=== PATIENT | male | born 1940 | race Native Hawaiian/Other Pacific Islander ===

== ENCOUNTER 2016-07-15 06:28 | Outpatient (CLI) | payer OTHER, MEDICARE ==
[~2016-07-15 06:28] MED LIST: AMILORIDE5 MG OR; ASPIRIN325 M1 OR; CADUET5 MG/10 MG OR; DEMADEX20 MG PO; DIOVAN HC1 PO; FINA5TAB2 PO; FISH OIL1000 M2 PO; K-TAB10 MEQ PO; ROSU10TA PO; TAMS0.4C PO; VITAMIN B-12500 MCG PO; VITAMIN D H1000 UNIT OR
[2016-07-15 07:19] LABS: POTASSIUM 4.1 mmol/L (3.6-5.2); SODIUM 137 mmol/L (136-145)
[2016-07-15 08:07] LABS: PLATELET COUNT 138 K/uL (142-355)
== END 2016-07-15 19:58 | disposition home or self-care (01) ==
LOC: LABW 06:28
PROVIDERS: Internal Medicine Cardiovascular Disease
DX: E78.4 Other hyperlipidemia (principal); R06.09 Other forms of dyspnea; Z79.899 Other long term (current) drug therapy; Z51.81 Encounter for therapeutic drug level monitoring; Z11.59 Encounter for screening for other viral diseases
CPT/HCPCS: 36415; 80048; 80061; 80076; 83880; 85027; 86803

== ENCOUNTER 2017-01-10 14:12 | Outpatient (CLI) | payer OTHER, MEDICARE | END 2017-01-10 15:15 | disposition home or self-care (01) | LOC: RAD 14:12 | DX: J32.8 Other chronic sinusitis (principal) ==

== ENCOUNTER 2017-01-20 13:07 | Outpatient (CLI) | payer OTHER, MEDICARE | END 2017-01-20 14:30 | disposition home or self-care (01) | LOC: LABW 13:07 | DX: R05 Cough (principal) | CPT/HCPCS: 36415; 86615 ==

== ENCOUNTER 2017-03-01 13:30 | Outpatient (CLI) | payer OTHER, MEDICARE | END 2017-03-01 19:01 | disposition home or self-care (01) | LOC: RESP 13:30 | DX: R06.02 Shortness of breath (principal) | CPT/HCPCS: 94640; 94664 ==

== ENCOUNTER 2017-06-29 14:39 | Outpatient (CLI) | payer OTHER, MEDICARE ==
[2017-06-29 16:06] LABS: PLATELET COUNT 174 K/uL (142-355)
== END 2017-06-29 15:40 | disposition home or self-care (01) ==
LOC: LABW 14:39
PROVIDERS: Nurse Practitioner Family
DX: J45.909 Unspecified asthma, uncomplicated (principal)
CPT/HCPCS: 36415; 82785; 85027; 86003

== ENCOUNTER 2017-09-01 06:08 | Outpatient (CLI) | payer OTHER, MEDICARE | END 2017-09-01 22:43 | disposition home or self-care (01) | LOC: LABW 06:08 | PROVIDERS: Specialist | DX: I25.10 Atherosclerotic heart disease of native coronary artery without angina pectoris (principal) | CPT/HCPCS: 36415; 80048; 83735 ==

== ENCOUNTER 2017-11-03 05:24 | Outpatient (CLI) | payer OTHER, MEDICARE ==
[2017-11-03 05:58] LABS: PLATELET COUNT 184 K/uL (142-355)
[2017-11-03 06:18] LABS: POTASSIUM 3.9 mmol/L (3.6-5.2)
== END 2017-11-03 22:00 | disposition home or self-care (01) ==
LOC: LABW 05:24
PROVIDERS: Internal Medicine
DX: I10 Essential (primary) hypertension (principal)
CPT/HCPCS: 36415; 80053; 80061; 81000; 82550; 83735; 84436; 84443; 84550; 85027

== ENCOUNTER 2018-02-05 06:28 | Outpatient (CLI) | payer OTHER, MEDICARE ==
[2018-02-05 07:54] LABS: PLATELET COUNT 163 K/uL (142-355)
== END 2018-02-05 19:13 | disposition home or self-care (01) ==
LOC: LABW 06:28 → RAD 06:28 → LABW 19:13
PROVIDERS: Internal Medicine
DX: Z00.00 Encounter for general adult medical examination without abnormal findings (principal); J45.909 Unspecified asthma, uncomplicated; I10 Essential (primary) hypertension; Z79.899 Other long term (current) drug therapy
CPT/HCPCS: 36415; 80053; 80061; 81000; 84153; 84439; 84443; 85027

== ENCOUNTER 2018-02-06 08:55 | Outpatient (CLI) | payer OTHER, MEDICARE | END 2018-02-06 22:39 | disposition home or self-care (01) | LOC: US 08:55 | DX: Z13.6 Encounter for screening for cardiovascular disorders (principal) ==

== ENCOUNTER 2018-03-20 06:33 | Outpatient (CLI) | payer OTHER, MEDICARE ==
[2018-03-20 07:50] LABS: PLATELET COUNT 168 K/uL (142-355)
== END 2018-03-20 20:59 | disposition home or self-care (01) ==
LOC: LABW 06:33
PROVIDERS: Internal Medicine
DX: M35.3 Polymyalgia rheumatica (principal)
CPT/HCPCS: 36415; 80053; 81000; 82550; 84443; 85027; 85651; 86140

== ENCOUNTER 2018-04-04 10:55 | Outpatient (CLI) | payer OTHER, MEDICARE | END 2018-04-04 23:01 | disposition home or self-care (01) | LOC: RAD 10:55 | DX: M25.552 Pain in left hip (principal); M25.551 Pain in right hip; M25.511 Pain in right shoulder; G89.29 Other chronic pain ==

== ENCOUNTER 2018-05-09 09:07 | Outpatient (CLI) | payer OTHER, MEDICARE ==
[2018-05-09 09:28] LABS: PLATELET COUNT 149 K/uL (142-355)
[2018-05-09 09:45] LABS: POTASSIUM 3.9 mmol/L (3.6-5.2)
== END 2018-05-09 19:25 | disposition home or self-care (01) ==
LOC: LABW 09:07
PROVIDERS: Specialist
DX: E78.5 Hyperlipidemia, unspecified (principal); I10 Essential (primary) hypertension; I25.10 Atherosclerotic heart disease of native coronary artery without angina pectoris; M35.3 Polymyalgia rheumatica; R21 Rash and other nonspecific skin eruption
CPT/HCPCS: 36415; 80053; 80061; 80076; 85027

== ENCOUNTER 2018-06-06 05:33 | Outpatient (CLI) | payer OTHER, MEDICARE ==
[2018-06-06 05:59] LABS: PLATELET COUNT 160 K/uL (142-355)
[2018-06-06 06:17] LABS: POTASSIUM 4.7 mmol/L (3.6-5.2)
== END 2018-06-06 23:59 | disposition home or self-care (01) ==
LOC: LABW 05:33
PROVIDERS: Nurse Practitioner Gerontology
DX: M35.3 Polymyalgia rheumatica (principal); R21 Rash and other nonspecific skin eruption
CPT/HCPCS: 36415; 80053; 85027

== ENCOUNTER 2018-08-21 06:42 | Outpatient (CLI) | payer OTHER, MEDICARE ==
[2018-08-21 08:30] LABS: POTASSIUM 4.2 mmol/L (3.6-5.2)
== END 2018-08-21 23:13 | disposition home or self-care (01) ==
LOC: LAB 06:42
PROVIDERS: Internal Medicine
DX: I50.9 Heart failure, unspecified (principal)
CPT/HCPCS: 36415; 80053; 83880; 84443

== ENCOUNTER 2018-09-25 11:35 | Outpatient (CLI) | payer OTHER, MEDICARE | END 2018-09-25 19:19 | disposition home or self-care (01) | LOC: RAD 11:35 | DX: R05 Cough (principal) ==

== ENCOUNTER 2018-10-12 09:51 | Outpatient (CLI) | payer OTHER, MEDICARE ==
[2018-10-12 10:27] LABS: PLATELET COUNT 144 K/uL (142-355)
[2018-10-12 11:14] LABS: POTASSIUM 3.8 mmol/L (3.6-5.2)
== END 2018-10-12 23:32 | disposition home or self-care (01) ==
LOC: LABW 09:51
PROVIDERS: Nurse Practitioner Family
DX: E55.9 Vitamin D deficiency, unspecified (principal); M16.0 Bilateral primary osteoarthritis of hip; M1A.9XX0 Chronic gout, unspecified, without tophus (tophi); M35.3 Polymyalgia rheumatica; M85.89 Other specified disorders of bone density and structure, multiple sites
CPT/HCPCS: 36415; 80053; 82306; 84550; 85027; 85651; 86140

== ENCOUNTER 2018-11-23 07:21 | Outpatient (CLI) | payer OTHER, MEDICARE | END 2018-11-23 21:36 | disposition home or self-care (01) | LOC: LABW 07:21 | PROVIDERS: Internal Medicine Interventional Cardiology | DX: E78.49 Other hyperlipidemia (principal); I25.10 Atherosclerotic heart disease of native coronary artery without angina pectoris; Z79.899 Other long term (current) drug therapy | CPT/HCPCS: 36415; 80061; 80076 ==

== ENCOUNTER 2018-11-29 09:51 | Outpatient (CLI) | payer OTHER, MEDICARE | END 2018-11-29 23:51 | disposition home or self-care (01) | LOC: RAD 09:51 | DX: J45.909 Unspecified asthma, uncomplicated (principal); M85.89 Other specified disorders of bone density and structure, multiple sites | CPT/HCPCS: 94640 ==

== ENCOUNTER 2019-02-19 06:11 | Outpatient (CLI) | payer OTHER, MEDICARE | END 2019-02-19 20:12 | disposition home or self-care (01) | LOC: LABW 06:11 | PROVIDERS: Specialist | DX: R06.02 Shortness of breath (principal); I20.0 Unstable angina | CPT/HCPCS: 36415; 80048; 83735; 83880 ==

== ENCOUNTER 2019-03-08 09:11 | Outpatient (CLI) | payer OTHER, MEDICARE | END 2019-03-08 09:35 | disposition short-term general hospital (02) | LOC: AMB 09:11 | DX: R55 Syncope and collapse (principal); R51 Headache; R07.89 Other chest pain; R06.02 Shortness of breath; R11.0 Nausea; S51.012A Laceration without foreign body of left elbow, initial encounter | CPT/HCPCS: A0425; A0427 ==

== ENCOUNTER 2019-03-14 15:12 | Outpatient (CLI) | payer OTHER, MEDICARE | END 2019-03-14 19:17 | disposition home or self-care (01) | LOC: LABW 15:12 | DX: J32.8 Other chronic sinusitis (principal) | CPT/HCPCS: 36415; 86615 ==

== ENCOUNTER 2019-03-29 13:44 | Outpatient (CLI) | payer OTHER, MEDICARE ==
[2019-03-29 14:13] LABS: POTASSIUM 3.1 mmol/L (3.6-5.2)
[2019-03-29 14:23] LABS: PLATELET COUNT 258 K/uL (142-355)
== END 2019-03-29 19:54 | disposition home or self-care (01) ==
LOC: LABW 13:44
PROVIDERS: Internal Medicine
DX: R53.83 Other fatigue (principal)
CPT/HCPCS: 36415; 80053; 85027

== ENCOUNTER 2019-04-01 13:53 | Outpatient (CLI) | payer OTHER, MEDICARE | END 2019-04-01 19:05 | disposition home or self-care (01) | LOC: CT 13:53 | DX: J45.909 Unspecified asthma, uncomplicated (principal); I50.9 Heart failure, unspecified ==

== ENCOUNTER 2019-04-16 10:19 | Outpatient (CLI) | payer OTHER, MEDICARE | END 2019-04-16 10:32 | disposition short-term general hospital (02) | LOC: AMB 10:19 | DX: R07.89 Other chest pain (principal); R06.02 Shortness of breath | CPT/HCPCS: A0425; A0427 ==

== ENCOUNTER 2019-04-16 10:34 | Emergency (ER) | payer OTHER, MEDICARE ==
[~2019-04-16] VITALS: Ht 180.3 cm; Wt 95.7 kg
[2019-04-16 10:34] VITALS: TEMP 98.1
[2019-04-16 11:06] LABS: PLATELET COUNT 196 K/uL (142-355)
[2019-04-16 11:13] LABS: POTASSIUM 2.7 mmol/L (3.6-5.2); SODIUM 136 mmol/L (136-145)
[2019-04-16 15:30] VITALS: BP 115/69
== END 2019-04-16 15:30 | disposition home or self-care (01) ==
LOC: ED 10:34
PROVIDERS: Family Medicine
DX: I20.8 Other forms of angina pectoris (principal); E87.6 Hypokalemia
CPT/HCPCS: 80053; 81000; 82550; 84484; 85027; 93005; 99284

== ENCOUNTER 2019-04-22 10:21 | Outpatient (CLI) | payer OTHER, MEDICARE ==
[2019-04-22 11:35] LABS: POTASSIUM 2.9 mmol/L (3.6-5.2)
== END 2019-04-22 21:50 | disposition home or self-care (01) ==
LOC: LABW 10:21
PROVIDERS: Internal Medicine
DX: E87.6 Hypokalemia (principal)
CPT/HCPCS: 36415; 80048; 83735

== ENCOUNTER 2019-05-02 16:33 | Outpatient (CLI) | payer OTHER, MEDICARE | END 2019-05-02 22:30 | disposition home or self-care (01) | LOC: LAB 16:33 | PROVIDERS: Internal Medicine | DX: E87.6 Hypokalemia (principal) | CPT/HCPCS: 36415; 80053; 83735 ==

== ENCOUNTER 2019-09-24 06:42 | Outpatient (CLI) | payer OTHER, MEDICARE ==
[2019-09-24 08:14] LABS: POTASSIUM 3.6 mmol/L (3.6-5.2)
== END 2019-09-24 19:05 | disposition home or self-care (01) ==
LOC: LAB 06:42
PROVIDERS: Internal Medicine
DX: E87.6 Hypokalemia (principal)
CPT/HCPCS: 36415; 80053; 83735

== ENCOUNTER 2020-06-24 12:28 | Outpatient (CLI) | payer OTHER, MEDICARE | END 2020-06-24 21:12 | disposition home or self-care (01) | LOC: LAB 12:28 | PROVIDERS: ATTEND Internal Medicine | DX: N39.0 Urinary tract infection, site not specified (principal) | CPT/HCPCS: 87077; 87086; 87088; 87186 ==

== ENCOUNTER 2020-06-29 14:56 | Outpatient (CLI) | payer OTHER, MEDICARE | END 2020-06-29 19:28 | disposition home or self-care (01) | LOC: CT 14:56 | PROVIDERS: ATTEND Internal Medicine | DX: R31.9 Hematuria, unspecified (principal) ==

== ENCOUNTER 2020-08-31 16:56 | Outpatient (CLI) | payer OTHER, MEDICARE | END 2020-08-31 23:45 | disposition home or self-care (01) | LOC: LAB 16:56 | PROVIDERS: ATTEND Internal Medicine | DX: R19.7 Diarrhea, unspecified (principal) | CPT/HCPCS: 82272; 83630; 87015; 87045; 87206; 87324; 87328; 87329; 87449; 87507; 87899 ==

== ENCOUNTER 2021-03-22 08:37 | Outpatient (CLI) | payer OTHER, MEDICARE ==
[2021-03-22 09:21] LABS: PLATELET COUNT 139 K/uL (142-355)
[2021-03-22 09:43] LABS: POTASSIUM 4.6 mmol/L (3.6-5.2)
== END 2021-03-22 19:47 | disposition home or self-care (01) ==
LOC: LABW 08:37
PROVIDERS: ATTEND Internal Medicine
DX: D64.89 Other specified anemias (principal); M10.9 Gout, unspecified; I25.10 Atherosclerotic heart disease of native coronary artery without angina pectoris; K59.01 Slow transit constipation
CPT/HCPCS: 36415; 80053; 80061; 81000; 84439; 84443; 84550; 85027

== ENCOUNTER 2021-03-25 10:53 | Outpatient (CLI) | payer OTHER, MEDICARE | END 2021-03-25 18:59 | disposition home or self-care (01) | LOC: RAD 10:53 | PROVIDERS: ATTEND Nurse Practitioner Family | DX: M10.09 Idiopathic gout, multiple sites (principal); M35.3 Polymyalgia rheumatica; M47.816 Spondylosis without myelopathy or radiculopathy, lumbar region; M85.89 Other specified disorders of bone density and structure, multiple sites; Z79.899 Other long term (current) drug therapy ==

== ENCOUNTER 2021-08-10 11:35 | Outpatient (CLI) | payer OTHER, MEDICARE ==
[2021-08-10 12:12] LABS: POTASSIUM 4.9 mmol/L (3.6-5.2)
== END 2021-08-10 18:54 | disposition home or self-care (01) ==
LOC: LABW 11:35
PROVIDERS: ATTEND Internal Medicine Cardiovascular Disease
DX: I10 Essential (primary) hypertension (principal); R06.09 Other forms of dyspnea; R53.83 Other fatigue
CPT/HCPCS: 36415; 80048

== ENCOUNTER 2021-11-24 11:13 | Outpatient (CLI) | payer OTHER, MEDICARE | END 2021-11-24 18:57 | disposition home or self-care (01) | LOC: RAD 11:13 | PROVIDERS: ATTEND Nurse Practitioner Family | DX: U07.1 COVID-19 (principal); R50.9 Fever, unspecified; W19.XXXA Unspecified fall, initial encounter; R05.8 Other specified cough ==

== ENCOUNTER 2022-04-21 13:50 | Outpatient (CLI) | payer OTHER, MEDICARE | END 2022-04-21 18:53 | disposition home or self-care (01) | LOC: RAD 13:50 | PROVIDERS: ATTEND Internal Medicine Sleep Medicine | DX: R06.09 Other forms of dyspnea (principal) ==

== ENCOUNTER 2022-05-09 10:39 | Outpatient (CLI) | payer OTHER, MEDICARE | END 2022-05-09 19:03 | disposition home or self-care (01) | LOC: RAD 10:39 | PROVIDERS: ATTEND Internal Medicine | DX: R05.2 Subacute cough (principal) ==

== ENCOUNTER 2022-10-12 10:03 | Outpatient (CLI) | payer OTHER, MEDICARE | END 2022-10-12 18:53 | disposition home or self-care (01) | LOC: LABW 10:03 | PROVIDERS: ATTEND Internal Medicine Gastroenterology | DX: K64.0 First degree hemorrhoids (principal) | CPT/HCPCS: 82272 ==

== ENCOUNTER 2022-10-26 16:18 | Outpatient (CLI) | payer OTHER, MEDICARE | END 2022-10-26 19:04 | disposition home or self-care (01) | LOC: RAD 16:18 | PROVIDERS: ATTEND Internal Medicine | DX: J69.0 Pneumonitis due to inhalation of food and vomit (principal) ==

== ENCOUNTER 2022-11-18 09:50 | Outpatient (CLI) | payer OTHER, MEDICARE ==
[2022-11-18 10:32] LABS: PLATELET COUNT 176 K/uL (142-355)
[2022-11-18 10:52] LABS: POTASSIUM 3.1 mmol/L (3.6-5.2)
== END 2022-11-18 19:40 | disposition home or self-care (01) ==
LOC: LABW 09:50 → CT 10:00 → LABW 19:40
PROVIDERS: ATTEND Internal Medicine
DX: R05.3 Chronic cough (principal); I25.10 Atherosclerotic heart disease of native coronary artery without angina pectoris; Z79.899 Other long term (current) drug therapy
CPT/HCPCS: 36415; 80053; 80061; 81002; 84439; 84443; 85027; 85652; 86431; Q9963

== ENCOUNTER 2022-12-02 08:44 | Outpatient (CLI) | payer OTHER, MEDICARE | END 2022-12-02 19:14 | disposition home or self-care (01) | LOC: CT 08:44 | PROVIDERS: ATTEND Internal Medicine | DX: R51.9 Headache, unspecified (principal); I77.89 Other specified disorders of arteries and arterioles ==

== ENCOUNTER 2023-01-26 14:20 | Outpatient (CLI) | payer OTHER, MEDICARE | END 2023-01-26 19:27 | disposition home or self-care (01) | LOC: CT 14:20 | PROVIDERS: ATTEND Internal Medicine | DX: J32.9 Chronic sinusitis, unspecified (principal) ==

== ENCOUNTER 2023-02-09 14:05 | Outpatient (CLI) | payer OTHER, MEDICARE | END 2023-02-09 19:07 | disposition home or self-care (01) | LOC: MRI 14:05 | PROVIDERS: ATTEND Internal Medicine | DX: R51.9 Headache, unspecified (principal) | CPT/HCPCS: 36415; 82565; 84520; A9576 ==